=== PATIENT | female | born 1990 | race African-American/Black ===

== ENCOUNTER 2021-07-06 07:42 | Outpatient (REF) | payer OTHER, SELFPAY ==
[2021-07-06 11:15] LABS: MANUAL DIFF FLAG NO
[2021-07-06 11:21] LABS: Basophils Percent Auto 1.2 % (0-2); Eosinophils Absolute Auto 0.3 X10*3/uL (0.0-0.4); Eosinophils Percent Auto 7.4 % (0-4); Hematocrit 34.5 % (37.0-47.0); Hemoglobin 10.7 g/dl (12.0-16.0); Lymphocytes Absolute Auto 1.3 X10*3/uL (1.2-4.9); Lymphocytes Percent Auto 39.3 % (20-40); Mean Corpuscular Hemoglobin 25.1 pg (27.0-33.0); Mean Corpuscular Volume 80.8 fL (80.0-98.0); Mean Platelet Volume 10.7 fL (9.4-12.3); Monocytes Absolute Auto 0.3 X10*3/uL (0.1-1.2); Monocytes Percent Auto 9.2 % (2-11); Neutrophils Absolute Auto 1.4 x10*3/uL (2.0-8.3); Neutrophils Percent Auto 42.9 % (45-73); Platelet Count 393 X10*3/uL (160-400); Red Blood Count 4.27 X10*6/uL (4.20-5.50); Red Cell Distribution Width 15.4 % (11.0-16.0); White Blood Count 3.4 X10*3/uL (4.8-10.8)
[2021-07-06 11:51] LABS: Alanine Aminotransferase 59 U/L (0-31); Alkaline Phosphatase 89 U/L (39-117); Anion Gap 11 (12-20); Aspartate Amino Transferase 90 U/L (5-31); Bilirubin Total 0.4 mg/dL (0.0-1.0); Blood Urea Nitrogen 8 mg/dL (9-16); Calcium 9.4 mg/dL (8.4-10.2); Carbon Dioxide 25 mmol/L (22-29); Chloride 105 mmol/L (96-108); Cholesterol 228 mg/dL; Estimated Glomerular Filt Rate > 60; Glucose Fasting 83 mg/dL (60-99); HDL Cholesterol 66 mg/dL; LDL Cholesterol Calculated 152 mg/dl; Potassium 3.7 mmol/L (3.3-5.1); Sodium 137 mmol/L (135-145); Total Protein 7.3 g/dL (6.5-8.0); Triglycerides 52 mg/dL
[2021-07-06 11:59] LABS: Ferritin 11 ng/mL (10-122); TSH reflex Free T4 0.78 uIU/mL (0.32-4.0)
== END 2021-07-06 07:43 | disposition home or self-care (01) ==
LOC: HO.HMGCLDS 07:42
PROVIDERS: Visit Provider Internal Medicine
DX: E66.09 Other obesity due to excess calories (principal); N92.0 Excessive and frequent menstruation with regular cycle; R03.0 Elevated blood-pressure reading, without diagnosis of hypertension; Z76.89 Persons encountering health services in other specified circumstances
CPT/HCPCS: 36415; 80053; 80061; 82728; 84443; 85025

== ENCOUNTER 2021-07-26 14:39 | Outpatient (REF) | payer OTHER, SELFPAY ==
--- NOTE | ~2021-07-26 | US_ITS ---
EXAMINATION: US PELVIS CLINICAL INFORMATION: Excessive and frequent menstruation COMPARISON: None TECHNIQUE: Ultrasound of the pelvis is performed using both transabdominal and transvaginal transducers along with Doppler. Transvaginal imaging is performed due to inadequate visualization transabdominally. FINDINGS: The uterus is anteverted and measures 10.4 x 5.8 x 7.7 cm in dimension. Endometrial thickness is normal measuring 1 cm. There are multiple uterine lesions suggestive of fibroids. At least 7 focal lesions are identified. Largest fibroids are a exophytic or subserosal left posterior uterine fundal fibroid measuring 2.9 x 2.6 x 3 cm, left uterine body fibroid measuring 2.3 x 1.9 x 2.6 cm and 2.3 x 1.9 x 1.5 cm and left subserosal uterine body fibroid measuring 3.7 x 2.1 x 2 1 cm. The cervix is normal. The ovaries are normal. The right ovary measures 4.5 x 1.5 x 2.3 cm. The left ovary measures 3.7 x 2.4 x 3.3 cm. There is no fluid in the pelvis. US/US pelvic and transvaginal IMPRESSION: Multiple uterine fibroids. Normal thickness endometrium. Normal-appearing ovaries.
== END 2021-07-26 14:40 | disposition home or self-care (01) ==
LOC: HO.HMGCX 14:39
PROVIDERS: Visit Provider Internal Medicine
DX: N92.0 Excessive and frequent menstruation with regular cycle (principal)
CPT/HCPCS: 76830; 76856

== ENCOUNTER 2021-08-23 09:51 | Outpatient (REF) | payer OTHER, SELFPAY ==
--- NOTE | ~2021-08-23 | XR_ITS ---
EXAMINATION: XR KNEE, RIGHT CLINICAL INFORMATION: Right knee injury. COMPARISON: None TECHNIQUE: Four views of the right knee. FINDINGS: There is a large right knee suprapatellar joint effusion no visible acute fracture, dislocation or subluxation seen. No bony erosive changes. XR/XR knee RT 4V IMPRESSION: Large right knee suprapatellar joint effusion. No visible acute fracture or dislocation seen. There is mild periarticular spurring medial compartment.
== END 2021-08-23 09:52 | disposition home or self-care (01) ==
LOC: HO.HMGCX 09:51
PROVIDERS: PCP Internal Medicine; Visit Provider Internal Medicine
DX: S89.91XD Unspecified injury of right lower leg, subsequent encounter (principal)
CPT/HCPCS: 73564

== ENCOUNTER 2021-09-05 11:10 | Outpatient (REF) | payer OTHER, SELFPAY ==
--- NOTE | ~2021-09-05 | XR_ITS ---
EXAMINATION: XR KNEE, RIGHT CLINICAL INFORMATION: Pain. COMPARISON: Right knee radiographs 08/23/2021. TECHNIQUE: Four views of the right knee. FINDINGS: Moderate size joint effusion, decreased when compared to 08/23/2021. Again noted similar periarticular irregularity along the medial surface of the distal femur and tibial plateau. No displaced fractures. No subluxation. XR/XR knee RT 4V IMPRESSION: 1. Moderate size joint effusion, decreased. 2. Again noted cortical irregularities along the medial surface of the distal femur and tibial plateau, possibly degenerative spurring, although given patient's age small avulsion fractures cannot be excluded. If symptoms persist, correlation with a CT or MR is recommended.
== END 2021-09-05 11:11 | disposition home or self-care (01) ==
LOC: HO.HMGCX 11:10
PROVIDERS: PCP Internal Medicine; Visit Provider Physician Assistant
DX: M25.561 Pain in right knee (principal)
CPT/HCPCS: 73564

== ENCOUNTER 2021-10-05 09:56 | Outpatient (REF) | payer OTHER, SELFPAY ==
[2021-10-05 11:01] LABS: Hematocrit 38.7 % (37.0-47.0); Hemoglobin 12.3 g/dl (12.0-16.0)
[2021-10-05 11:44] LABS: Syphilis Screen Nonreactive (Nonreactive)
[2021-10-05 11:46] LABS: Alanine Aminotransferase 17 U/L (0-31); Albumin Level 4.3 g/dL (3.5-5.0); Alkaline Phosphatase 104 U/L (39-117); Aspartate Amino Transferase 17 U/L (5-31); Bilirubin Direct < 0.2 mg/dL (0.0-0.5); Bilirubin Total 0.2 mg/dL (0.0-1.0); Total Protein 7.6 g/dL (6.5-8.0)
[2021-10-05 11:56] LABS: Ferritin 20 ng/mL (10-122)
[2021-10-05 12:22] LABS: HBc Num1 0.07 S/CO (0.00-0.79); HIV AB/AG Nonreactive (Nonreactive); HIV Num 1 0.06 S/CO (0.00-0.99); Hepatitis B Core Antibody Nonreactive (Nonreactive); ~HepC Num1 0.13 S/CO (0.00-0.79); ~Hepatitis C Antibody Nonreactive (Nonreactive)
[2021-10-05 18:35] LABS: CT PCR NOT DETECTED (Not Detect.); NG PCR NOT DETECTED (Not Detect.)
[2021-10-06 10:49] LABS: BV Int Neg Control Negative (Negative); BV Int Pos Control Positive (Positive)
[2021-10-08 10:16] LABS: HPV mRNA E6/E7 rflx Not Detected (Not Detected)
== END 2021-10-05 09:57 | disposition home or self-care (01) ==
LOC: HO.LAB 09:56
PROVIDERS: PCP Internal Medicine; Referring Provider Internal Medicine; Visit Provider Advanced Practice Midwife
DX: Z01.419 Encounter for gynecological examination (general) (routine) without abnormal findings (principal); N92.0 Excessive and frequent menstruation with regular cycle; D50.9 Iron deficiency anemia, unspecified; R79.89 Other specified abnormal findings of blood chemistry; Z20.2 Contact with and (suspected) exposure to infections with a predominantly sexual mode of transmission
CPT/HCPCS: 36415; 80076; 82728; 85014; 85018; 86704; 86780; 86803; 87389; 87480; 87491; 87510; 87591; 87624; 87660; 88142

== ENCOUNTER → 2021-10-07 14:54 | Outpatient (BNVA) | payer OTHER, SELFPAY | PROVIDERS: PCP Internal Medicine; Visit Provider Advanced Practice Midwife | DX: Z30.42 Encounter for surveillance of injectable contraceptive (principal); N92.0 Excessive and frequent menstruation with regular cycle | CPT/HCPCS: 96372; 99211 ==

== ENCOUNTER 2021-10-09 04:53 | Emergency (ER) | payer OTHER, SELFPAY ==
[2021-10-09 05:33] VITALS: BP 131/69; PULSE 78; RESP 16; TEMP 36.9; O2SAT 100; BMI 29.9
[2021-10-09 06:30] LABS: MANUAL DIFF FLAG NO
[2021-10-09 06:31] LABS: Basophils Percent Auto 0.5 % (0-2); Eosinophils Absolute Auto 0.1 X10*3/uL (0.0-0.4); Eosinophils Percent Auto 2.2 % (0-4); Hematocrit 34.4 % (37.0-47.0); Hemoglobin 10.9 g/dl (12.0-16.0); Imm Gran Abs Auto 0.02 X10*3/uL (0.00-0.03); Imm Gran Pct Auto 0.3 % (0.0-0.4); Lymphocytes Absolute Auto 1.3 X10*3/uL (1.2-4.9); Lymphocytes Percent Auto 20.1 % (20-40); Mean Corpuscular HGB Conc 31.7 g/dl (31.0-35.0); Mean Corpuscular Hemoglobin 25.1 pg (27.0-33.0); Mean Corpuscular Volume 79.1 fL (80.0-98.0); Mean Platelet Volume 9.8 fL (9.4-12.3); Monocytes Absolute Auto 0.4 X10*3/uL (0.1-1.2); Monocytes Percent Auto 6.1 % (2-11); Neutrophils Absolute Auto 4.6 x10*3/uL (2.0-8.3); Neutrophils Percent Auto 70.8 % (45-73); Platelet Count 328 X10*3/uL (160-400); Red Blood Count 4.35 X10*6/uL (4.20-5.50); Red Cell Distribution Width 16.7 % (11.0-16.0); White Blood Count 6.4 X10*3/uL (4.8-10.8)
[2021-10-09 06:34] LABS: UPreg QC Valid YES; Urine Pregnancy NEGATIVE (NEGATIVE)
--- NOTE | 2021-10-09 06:43 | PC.NURSE ---
Pt. came in as she'd been experiencing pain and bleeding d/t fibroids. Her provider gave her a depo shot to combat this. It had no effect and has been making the pain and bleeding worse. Pt. resting in bed waiting to be seen by ED provider.
[2021-10-09 06:54] LABS: Anion Gap 12 (12-20); Blood Urea Nitrogen 10 mg/dL (9-16); Calcium 8.5 mg/dL (8.4-10.2); Carbon Dioxide 23 mmol/L (22-29); Chloride 110 mmol/L (96-108); Creatinine Clr Calc Pharmacy 100.4; Estimated Glomerular Filt Rate > 60; Glucose Random 88 mg/dL (60-115); Potassium 3.8 mmol/L (3.3-5.1); Sodium 141 mmol/L (135-145)
[2021-10-09 07:04] LABS: Appearance Urine Turbid; Color Urine RED; Glucose Urine UA Negative (Negative); Nitrite Urine Negative (Negative); Specific Gravity - Urine 1.025 (1.005-1.025); Urine Blood Large (3+) (Negative); Urine Ketones Negative (Negative); Urine Protein 30 (1+) mg/dL (Neg-Trace)
[2021-10-09 07:07] VITALS: BP 122/73; PULSE 71; RESP 20; TEMP 37; O2SAT 100
[2021-10-09 07:12] LABS: Leukocyte Esterase Urine Negative (Negative)
[2021-10-09 07:14] LABS: Bacteria Urine 1+ (None Seen); Hyaline Casts Urine 0-2 /LPF (0-2); RBC Urine >20 /HPF (0-2); WBC Urine 0-5 /HPF (0-5)
--- NOTE | 2021-10-09 07:18 | ED.GENADULT ---
HPI - General Adult General Chief complaint: General Medical Stated complaint: pelvic pain Time Seen by Provider: 10/09/21 05:04 Source: patient Mode of arrival: ambulatory Limitations: no limitations History of Present Illness HPI narrative: 31-year-old female came in for evaluation of lower abdominal pain after having Depo shot 2 days ago. Patient was confirmed to be negative for , just had a Depo shot 2 days ago started to have lower abdominal pain, patient currently is on her menstrual period, no SOB or CP. No nausea, no vomiting, no diarrhea, no fever, no chills. No abnormal vaginal discharge or bleed. No lower extremity swelling or tenderness. Related Data Previous Rx's Medication Instructions Recorded ferrous sulfate 324 mg (65 mg 324 mg PO BID 90 days #180 tabs 07/12/21 iron) tablet,delayed release medroxyprogesterone 150 mg/mL 150 mg IM [id number] #1 mL 10/05/21 intramuscular suspension (Depo-Provera) metronidazole 500 mg tablet 500 mg PO BID 7 days #14 tabs 10/07/21 Allergies Allergy/AdvReac Type Severity Reaction Status Date / Time No Known Allergies Allergy Verified 10/09/21 05:33 Review of Systems Review of Systems: All other systems are reviewed and are negative Constitutional: Reports as per HPI and Reports no additional constitutional complaints Eyes: Reports as per HPI and Reports no additional eye complaints Reports system reviewed and no additional complaints, except as documented Cardiovascular: Reports as per HPI and Reports no additional cardiovascular complaints Respiratory: Reports as per HPI and Reports no additional respiratory complaints Gastrointestinal: Reports as per HPI and Reports no additional gastrointestinal complaints Genitourinary: Reports no additional female genitourinary complaints Musculoskeletal: Reports no additional musculoskeletal complaints Skin/Breast: Reports system reviewed and no additional complaints, except as docu Psychiatric: Reports no additional psychiatric complaints Endocrine: Reports no additional endocrine complaints Hematologic/Lymphatic: Reports no additional hematologic/lymphatic complaints Allergic/Immunologic: Reports no additional allergic/immunologic complaints Reports system reviewed and no additional complaints, except as documented and Reports Abnormal speech present [facility] Past Medical History Medical History Depression Uterine fibroid Family History Family History Mother Hypertension Brain tumor Substance use disorder Maternal Grandmother Heart attack Father Substance use disorder Social History Social History Housing: House Patient Tobacco Use Status: Former Tobacco user Years Smoked: 5 years e-Cigarette/Vaping Use: Never Used Use of substances other than those prescribed or required for medical reasons: No Advance Directives: No Advance Directives Information Provided: No Patient : No service: Yes Current occupational status: employed 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 Blood pressure normal. Heart rate normal. Respiration rate normal. Temperature normal. Oxygen saturation normal. Appearance: Alert. Oriented X3. No acute distress. Head: Normal external exam. Normocephalic. Atraumatic. No House signs noted. No raccoon eyes noted Eyes: PERRLA. EOMI. Conjunctiva and sclera normal. Eyelids normal. ENT: TM's Normal. Pharynx normal. Uvula midline. Moist mucous membranes. No trismus noted. No drooling noted. No muffled voice noted. Neck: Normal inspection. Neck supple. FROM. No adenopathy. Thyroid Normal. No meningeal signs. No neck mass noted. CVS: Normal heart rate and rhythm. Heart sound normal. No murmurs noted. Pulses normal throughout. Respiratory: No respiratory distress. Painless inspiration. Breath sounds normal. No wheezes/rales/rhonchi noted. Chest nontender. No accessory muscle usage noted or decreased air movement noted. Abdomen: Soft and nontender. Bowel sounds normal in all 4 quadrants. No distention noted. No organomegaly noted. No visible injury noted. Back: No CVA tenderness. Full range of motion noted. Skin: Skin warm and dry. Normal skin color. Normal skin turgor. No rashes/lesions/lacerations noted. Extremities: No lower extremity edema. Extremities exhibit normal range of motion. Extremities nontender. Neuro: Oriented X 3. Cranial nerve exam: II-XII are grossly intact No motor deficit. No sensory deficit. Reflexes normal. Course Course Course Narrative: 31-year-old female status post Depo shot 2 days ago came in for evaluation of pelvic pain patient declined any CP or SOB, however D-dimer is elevated patient walked out before complete evaluation attempt to contact the patient on cell phone with no answers, Patient left before full evaluation. Medical Decision Making Lab Data Lab results reviewed: Yes I reviewed the patient's lab results. Result diagrams: 10/09/21 06:23 10/09/21 06:23 Labs: Lab Results 10/09/21 10/09/21 10/09/21 Range/Units 06:23 06:23 06:24 WBC 6.4 (4.8-10.8) X10*3/uL RBC 4.35 (4.20-5.50) X10*6/uL Hgb 10.9 L (12.0-16.0) g/dl Hct 34.4 L (37.0-47.0) % MCV 79.1 L (80.0-98.0) fL MCH 25.1 L (27.0-33.0) pg MCHC 31.7 (31.0-35.0) g/dl RDW 16.7 H (11.0-16.0) % Plt Count 328 (160-400) X10*3/uL MPV 9.8 (9.4-12.3) fL Immature Gran % (Auto) 0.3 (0.0-0.4) % Neut % (Auto) 70.8 (45-73) % Lymph % (Auto) 20.1 (20-40) % [place] % (Auto) 6.1 (2-11) % Eos % (Auto) 2.2 (0-4) % Baso % (Auto) 0.5 (0-2) % Lymph # (Auto) 1.3 (1.2-4.9) X10*3/uL [place] # (Auto) 0.4 (0.1-1.2) X10*3/uL Eos # (Auto) 0.1 (0.0-0.4) X10*3/uL Baso # (Auto) 0.0 (0.0-0.2) X10*3/uL Abs Immat Gran (auto) 0.02 (0.00-0.03) X10*3/uL Absolute Neuts (auto) 4.6 (2.0-8.3) x10*3/uL Absolute Nucleated RBC 0.000 (0.0-0.012) X10*3/uL Nucleated RBC % (auto) 0.0 (0.0-0.2) /100WBC D-Dimer High Sensitivty NG/ML Sodium 141 (135-145) mmol/L Potassium 3.8 (3.3-5.1) mmol/L Chloride 110 H (96-108) mmol/L Carbon Dioxide 23 (22-29) mmol/L Anion Gap 12 (12-20) BUN 10 (9-16) mg/dL Creatinine 0.85 (0.5-1.4) mg/dL Estim Creat Clear Calc 100.4 Estimated GFR > 60 Random Glucose 88 (60-115) mg/dL Calcium 8.5 D (8.4-10.2) mg/dL Total Bilirubin < 0.2 (0.0-1.0) mg/dL Direct Bilirubin < 0.2 (0.0-0.5) mg/dL AST 14 (5-31) U/L ALT 15 (0-31) U/L Alkaline Phosphatase 93 (39-117) U/L Total Protein 6.8 (6.5-8.0) g/dL Albumin 3.9 (3.5-5.0) g/dL Lipase 14 (8-78) U/L Urine Color RED Urine Appearance Turbid Urine pH 6.0 (5.0-8.0) Ur Specific [place] 1.025 (1.005-1.025) Urine Protein 30 (1+) H (Neg-Trace) mg/dL Urine Glucose (UA) Negative (Negative) mg/dL Urine Ketones Negative (Negative) mg/dL Urine Blood Large (3+) H (Negative) Urine Nitrite Negative (Negative) Ur Leukocyte Esterase Negative (Negative) Urine RBC >20 H (0-2) /HPF Urine WBC 0-5 (0-5) /HPF Ur Squamous Epith Cells 3-5 (0-2) /HPF Urine Bacteria 1+ (None Seen) Hyaline Casts 0-2 (0-2) /LPF Urine Test (NEGATIVE) 10/09/21 10/09/21 Range/Units 06:24 08:12 WBC (4.8-10.8) X10*3/uL RBC (4.20-5.50) X10*6/uL Hgb (12.0-16.0) g/dl Hct (37.0-47.0) % MCV (80.0-98.0) fL MCH (27.0-33.0) pg MCHC (31.0-35.0) g/dl RDW (11.0-16.0) % Plt Count (160-400) X10*3/uL MPV (9.4-12.3) fL Immature Gran % (Auto) (0.0-0.4) % Neut % (Auto) (45-73) % Lymph % (Auto) (20-40) % [place] % (Auto) (2-11) % Eos % (Auto) (0-4) % Baso % (Auto) (0-2) % Lymph # (Auto) (1.2-4.9) X10*3/uL [place] # (Auto) (0.1-1.2) X10*3/uL Eos # (Auto) (0.0-0.4) X10*3/uL Baso # (Auto) (0.0-0.2) X10*3/uL Abs Immat Gran (auto) (0.00-0.03) X10*3/uL Absolute Neuts (auto) (2.0-8.3) x10*3/uL Absolute Nucleated RBC (0.0-0.012) X10*3/uL Nucleated RBC % (auto) (0.0-0.2) /100WBC D-Dimer High Sensitivty 422 NG/ML Sodium (135-145) mmol/L Potassium (3.3-5.1) mmol/L Chloride (96-108) mmol/L Carbon Dioxide (22-29) mmol/L Anion Gap (12-20) BUN (9-16) mg/dL Creatinine (0.5-1.4) mg/dL Estim Creat Clear Calc Estimated GFR Random Glucose (60-115) mg/dL Calcium (8.4-10.2) mg/dL Total Bilirubin (0.0-1.0) mg/dL Direct Bilirubin (0.0-0.5) mg/dL AST (5-31) U/L ALT (0-31) U/L Alkaline Phosphatase (39-117) U/L Total Protein (6.5-8.0) g/dL Albumin (3.5-5.0) g/dL Lipase (8-78) U/L Urine Color Urine Appearance Urine pH (5.0-8.0) Ur Specific [place] (1.005-1.025) Urine Protein (Neg-Trace) mg/dL Urine Glucose (UA) (Negative) mg/dL Urine Ketones (Negative) mg/dL Urine Blood (Negative) Urine Nitrite (Negative) Ur Leukocyte Esterase (Negative) Urine RBC (0-2) /HPF Urine WBC (0-5) /HPF Ur Squamous Epith Cells (0-2) /HPF Urine Bacteria (None Seen) Hyaline Casts (0-2) /LPF Urine Test NEGATIVE (NEGATIVE) Discharge Plan Discharge Clinical Impression: Pelvic pain Patient Disposition: Elopement Prescriptions: No Action metronidazole 500 mg tablet 500 mg PO BID 7 Days Qty: 14 0RF Rx Instructions: Take with food, Avoid alcohol and vinegar products ferrous sulfate 324 mg (65 mg iron) tablet,delayed release (DR/EC) 324 mg PO BID 90 Days Qty: 180 0RF medroxyprogesterone [Depo-Provera] 150 mg/mL suspension 150 mg IM [id number] Qty: 1 3RF Interventions: ED Discharge Assessment Last Done: 10/09/21 10:10 Discharge Date/Time: 10/09/21 10:10
--- NOTE | 2021-10-09 07:21 | PC.NURSE ---
Patient reports experiencing bilateral lower abdominal pain 8. Patient pads ~ 1 ml mini bleeding. Patient Lungs sounds were clear, vitals are normal.
[2021-10-09 07:37] LABS: Alanine Aminotransferase 15 U/L (0-31); Albumin Level 3.9 g/dL (3.5-5.0); Alkaline Phosphatase 93 U/L (39-117); Aspartate Amino Transferase 14 U/L (5-31); Bilirubin Direct < 0.2 mg/dL (0.0-0.5); Bilirubin Total < 0.2 mg/dL (0.0-1.0); Lipase 14 U/L (8-78); Total Protein 6.8 g/dL (6.5-8.0)
[2021-10-09 08:24] LABS: D Dimer High Sensitivity 422 NG/ML
== END 2021-10-09 10:10 | disposition left against medical advice (07) ==
PROVIDERS: Emergency Medicine; Emergency Provider Emergency Medicine; PCP Internal Medicine
DX: R10.2 Pelvic and perineal pain (principal); R10.9 Unspecified abdominal pain; Z79.899 Other long term (current) drug therapy; Z87.891 Personal history of nicotine dependence
CPT/HCPCS: 36415; 80048; 80076; 81001; 81003; 81025; 83690; 85025; 85379; 99284

== ENCOUNTER 2021-10-11 07:57 | Outpatient (REF) | payer OTHER, SELFPAY ==
--- NOTE | ~2021-10-11 | XR_ITS ---
EXAMINATION: XR BILATERAL KNEE AP STANDING. LATERAL AND SUNRISE VIEWS OF THE RIGHT KNEE. CLINICAL INFORMATION: Pain in unspecified knee COMPARISON: 09/05/2021 TECHNIQUE: AP bilateral standing view of both knees, lateral view of the right knee, and sunrise view of the right knee were obtained. FINDINGS: Right knee: No fracture or dislocation. Mild medial compartment joint space narrowing. Mild medial osteophytosis. Small joint effusion appears improved from the prior. Mild lateral patellar tilt Left knee: Mild medial compartment joint space narrowing. No fracture or dislocation. XR/XR knee standing BI IMPRESSION: Mild medial and patellofemoral compartment degenerative changes. Decreasing right suprapatellar joint effusion.
--- NOTE | ~2021-10-11 | XR_ITS ---
EXAMINATION: XR BILATERAL KNEE AP STANDING. LATERAL AND SUNRISE VIEWS OF THE RIGHT KNEE. CLINICAL INFORMATION: Pain in unspecified knee COMPARISON: 09/05/2021 TECHNIQUE: AP bilateral standing view of both knees, lateral view of the right knee, and sunrise view of the right knee were obtained. FINDINGS: Right knee: No fracture or dislocation. Mild medial compartment joint space narrowing. Mild medial osteophytosis. Small joint effusion appears improved from the prior. Mild lateral patellar tilt Left knee: Mild medial compartment joint space narrowing. No fracture or dislocation. XR/XR knee RT 2V IMPRESSION: Mild medial and patellofemoral compartment degenerative changes. Decreasing right suprapatellar joint effusion.
== END 2021-10-11 07:58 | disposition home or self-care (01) ==
LOC: HO.HOSX 07:57
PROVIDERS: Visit Provider Physician Assistant
DX: S80.01XA Contusion of right knee, initial encounter (principal)
CPT/HCPCS: 73560; 73565; 99202

== ENCOUNTER → 2021-11-08 13:51 | Outpatient (BNVA) | payer OTHER, SELFPAY | PROVIDERS: PCP Internal Medicine; Visit Provider Physician Assistant | DX: S80.01XD Contusion of right knee, subsequent encounter (principal) | CPT/HCPCS: 99212 ==

== ENCOUNTER → 2021-12-20 15:21 | Outpatient (BNVA) | payer OTHER, SELFPAY | PROVIDERS: PCP Internal Medicine; Visit Provider Physician Assistant | DX: S80.01XD Contusion of right knee, subsequent encounter (principal) | CPT/HCPCS: 99212 ==

== ENCOUNTER 2021-12-26 07:55 | Outpatient (REF) | payer OTHER, SELFPAY ==
[2021-12-26 12:41] LABS: Blood Urea Nitrogen 10 mg/dL (9-16); Estimated Glomerular Filt Rate > 60
== END 2021-12-26 07:56 | disposition home or self-care (01) ==
LOC: HO.WFDLDS 07:55
PROVIDERS: Visit Provider Radiology Vascular & Interventional Radiology
DX: D25.9 Leiomyoma of uterus, unspecified (principal); Z98.890 Other specified postprocedural states
CPT/HCPCS: 36415; 82565; 84520

== ENCOUNTER 2022-01-04 13:36 | Outpatient (REF) | payer OTHER, SELFPAY ==
--- NOTE | ~2022-01-04 | MR_ITS ---
EXAMINATION: MR KNEE WITHOUT CONTRAST, RIGHT CLINICAL INFORMATION: Right knee pain COMPARISON: Radiographs 10/11/2021 TECHNIQUE: MRI of the knee without contrast was performed using routine sequences on a high-field scanner. FINDINGS: MENISCI: Medial Meniscus: Intact Lateral Meniscus: Intact LIGAMENTS: Cruciate: Intact Collateral: Intact EXTENSOR MECHANISM: Intact ARTICULAR CARTILAGE/BONE: Patellofemoral Compartment: Mild cartilage thinning and surface irregularity of the medial patellar facet and along the median ridge. Medial Compartment: Mild cartilage thinning and surface irregularity of the weightbearing femoral condyle and the peripheral aspect of the tibia medially. Lateral Compartment: Focal partial-thickness cartilage loss of the tibia posteriorly. JOINT FLUID AND BURSAE: Moderate joint effusion with mild synovitis. There is a small loose body in the posterior joint recess. MR/MR knee RT wo con IMPRESSION: 1. No meniscal tear. 2. Mild tricompartmental osteoarthritis with a moderate joint effusion and mild synovitis. There is a small loose body in the posterior joint recess.
== END 2022-01-04 13:37 | disposition home or self-care (01) ==
LOC: HO.MRI 13:36
PROVIDERS: Visit Provider Physician Assistant
DX: S80.01XA Contusion of right knee, initial encounter (principal)
CPT/HCPCS: 73721

== ENCOUNTER 2022-01-13 07:00 | Outpatient (RCR) | payer OTHER, SELFPAY ==
--- NOTE | 2021-12-21 13:35 | MHC.PT.OD ---
[facility] [place] Office [place] [facility] [place] [facility] [address] [place] [address] [phone] F: [phone] F: [phone] F: [phone] F: [phone] Physical Therapy Daily Note Diagnosis: [id number] Contusion of right knee, initial encounter. Contusion of right patella signed by Ruba Greene PA-C date of referral 11/09/21 Date of Surgery: Date of Evaluation: 12/09/21 Date of Treatment: 12/20/21 Treatments to Date: 4 Cancellations to Date: No Shows to Date: Authorized Visits: 15 Insurance End Date: Precautions/ Contraindications: Subjective: Pt expressing ongoing medial knee pain. She had to complete sit-ups for PT test this past Sunday questions if this caused flare of sx. Had significant pain walking the mall. Pain Score and Location: 07/22 Objective Flowsheet: Tests & Measures Exercises Review of SLR into flexion x 2 sets 10R , SL hip abduction x 2 sets 10R, prone hip extension x 2 sets 10R, AAROM heel slide AROM today 124 degrees , standing TKE with GTB x 2 sets 10R, standing heel touches attempted post taping but increased sx so this was stopped at 15R. Reviewed the impact of avoiding knee hyperext in standing, completed weight-shifting for hip extension bilaterally. Education re: impact of knee hyperext on symptoms. Iced knee in passive knee extension stretch with application of SELECT ESTIM end of session- post passive kne ext stretch ROM improved to -3 degrees. Education re: CFM for patellar tendon, education re: benefit in stretching quadriceps, self mobilization of quadriceps to ease mm soreness. Reviewed taping application V for offloading patellar tendon, vs alternate V strip last session. Modalities SELECT ESTIM UNIT applied R knee cross patterned tibiofemoral joint intensity 2.5mA> 3.0 mA x 10 minutes with passive knee extension ice as noted above. Assessment: 12/20/21: Pt has attended 4 sessions of PT to date since start of care on 12/09/21. Pt exhibits ongoing sx medial aspect of her knee and at site of patellar tendon today. Pt has been expressing buckling of her knee when walking on flat terrain multiple times daily. She expresses worsening sx after completing PT test when performing sit-up crunches this past Sunday. She has been advised to refrain from running but is scheduled for tentative PT test in December. Therapist has advised patient to refrain from running at this time and has been encouraged to walk within her tolerance and resume icing. AROM -8 to 124 degrees, AAROM -3 post icing. She has been using a compressive sleeve in addition to taping her knee. She has been wearing the patellar support brace given to her from orthopedics during the work day. She has been compliant with her HEP program and we have discussed modifications for avoidance of specific gym tasks such as open chain knee extension. We discussed the impact of footwear and potential benefit in trialing an arch support/ alternative supportive sneaker vs flat shoes. Pt has been encouraged to continue pain-free therex program as tolerated and use ice to aide in edema management. Pt scheduled [place] [facility] [place] [place] follow up later today at 3:00pm. 12/12/21: Pt challenged with SLR into flexion, verbalized positive response to self taping at time of last session. Pt issued written HEP sheets to include: SLR into flexion, SL hip abd, add, and prone hip extension, bridge, wall squats. Educated to ensure ROM is painfree for the R knee. Pt is a 31 y/o female, referred to PT for treatment of R knee contusion following history of hitting knee on the side of her bed in July. Pt continues to express limited tolerance for CKC activity, presents with poor quad function resulting in decreased strength and impaired functional mobility tolerance for stairs/prolonged ambulation. Pt currently working light duty ([employer]) Pt would benefit from attending skilled PT services at a frequency of 2x/week x 4-6 weeks to address impairments, implement HEP, and restore functional mobility to resume PLOF. Pt currently wearing patellar glide brace/sleeve at times. Pt exhibits decreased quadriceps activation/recruitment, impaired tolerance for ability to run, jump, bend her knee without pain, and complete fitness test as required for style PT testing. Pt was initiated in HEP program including: isometric quad set, SLR into flexion, aarom heel slides in sitting, and heel prop knee extension with ice/towel roll. PT Plan: 2x/week x 4-6 weeks Follow up with orthopedic later today 3:00pm. Short Term Goals: 1. AROM R knee extension to 0 degrees. (IR: -5 degrees). 2. AAROM R knee flexion to 130 degrees. (IR: 1128 degrees) 3. Strength of R knee to 5/5. (IR: poor quad activation and painful). 4. Negotiate stairs reciprocally with good dynamic balance. 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 Demonstrate good squat technique with good tolerance. 2. Run 1.5 miles within 16 minute duration. 3. Initiate a walking program with good dynamic balance. 4. Resume exercise MOD I with good joint protection. Electronically signed by: Heidy Olivarez, PT, DPT
== END 2022-04-06 07:48 | disposition home or self-care (01) ==
LOC: HO.PTWFD 07:00
PROVIDERS: PCP Internal Medicine; Visit Provider Physician Assistant
DX: S80.01XA Contusion of right knee, initial encounter (principal)
CPT/HCPCS: 97014; 97110; 97140; 97161; 97535

== ENCOUNTER → 2022-01-17 13:25 | Outpatient (BNVA) | payer OTHER, SELFPAY | PROVIDERS: PCP Internal Medicine; Visit Provider Physician Assistant | DX: S80.01XA Contusion of right knee, initial encounter (principal); W22.03XA Walked into furniture, initial encounter; Y93.9 Activity, unspecified; Y92.003 Bedroom of unspecified non-institutional (private) residence as the place of occurrence of the external cause; Y99.8 Other external cause status | CPT/HCPCS: 20610; 99212; J1040 ==

== ENCOUNTER 2022-05-10 06:33 | Emergency (ER) | payer OTHER, SELFPAY ==
[2022-05-10 06:53] VITALS: BP 134/82; PULSE 77; RESP 16; TEMP 36.3; O2SAT 100; BMI 30.4
[2022-05-10 07:27] VITALS: BP 128/83; PULSE 75; RESP 18; TEMP 36.9; O2SAT 100
--- NOTE | 2022-05-10 07:39 | ED.GENADULT ---
HPI - General Adult General Chief complaint: Back Pain/Injury Stated complaint: Back pain Time Seen by Provider: 05/10/22 07:37 Source: patient Mode of arrival: ambulatory Limitations: no limitations History of Present Illness HPI narrative: 6 days myalgias to back and legs. Patient had embolization to her fibroids, she started her period 6 days ago. In addition she has had chest pain. Never had chest pain before with symptoms feels short of breath. Substernal chest pain intermittent, nothing seems to start it, it goes away on its own. The pain happens in the middle of the night. She describes the pain as pressure. Back and legs are achey. Patient decided to come in because of the duration of discomfort. Onset (ago): day(s) Location: chest, back and lower extremity Radiation: non-radiation Severity: mild Quality: aching Pain Consistency: intermittent Related Data Previous Rx's Medication Instructions Recorded ferrous sulfate 324 mg (65 mg 324 mg PO BID 90 days #180 tabs 01/20/22 iron) tablet,delayed release naproxen 500 mg tablet (Naprosyn) 500 mg PO BID #20 tabs 05/10/22 Allergies Allergy/AdvReac Type Severity Reaction Status Date / Time No Known Allergies Allergy Verified 05/10/22 06:56 Review of Systems Review of Systems: Yes all other systems are reviewed and are negative Constitutional: Comments: myalgias Cardiovascular: Cardiovascular: Reports chest pain PMFSH Past Medical History Medical History Depression High cholesterol Uterine fibroid Family History Family History Mother Hypertension Brain tumor Substance use disorder Maternal Grandmother Heart attack Father Substance use disorder Social History Social History Housing: House Alcohol intake: current Alcohol intake frequency: a few times a week Alcohol type: wine Patient Tobacco Use Status: Former Tobacco user Years Smoked: 5 years e-Cigarette/Vaping Use: Never Used Advance Directives: No Advance Directives Information Provided: Yes service: Yes Current occupational status: employed 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 Cognitive needs: No Hearing needs: No Vision needs: No Physical Exam ED Vital Signs: Vital Signs - 24 hr 05/10/22 06:53 05/10/22 07:27 Temperature 97.4 F 98.4 F Pulse Rate 77 75 Respiratory Rate 16 18 Blood Pressure 134/82 128/83 Pulse Oximetry 100 100 Oxygen Delivery Method Room Air Room Air BMI result Body Mass Index 30.4 Const General: healthy appearing Nutritional Appearance: average body habitus Orientation/consciousness: oriented to person and patient oriented x3 Limitations: no limitations HENMT Head: Yes normal to inspection Ears: external ears normal General nose exam: Normal external nose present Mouth: Normal oral and palatal mucosa present and oropharynx normal Throat: Yes posterior oropharynx normal Eyes General: appearance normal, both eyes and all related structures Neck Neck: Yes normal visual inspection Chest Chest palpation & inspection: normal inspection of the chest Resp Auscultation: clear to auscultation bilaterally Cardio Jugular venous distension: no JVD Rate: regular rate Rhythm: regular rhythm Heart sounds: S1 normal heart sound present and S2 normal heart sound present GI Inspection: Yes normal to inspection Palpation (GI): Soft to palpation, nontender and No hepatosplenomegaly present Auscultation: normal bowel sounds General: Yes no CVA tenderness Back/Spine/Pelvis Back: no CVA tenderness Skin General skin exam: no rashes or lesions noted Neuro General: oriented to person and patient oriented x3 Cranial nerves: Yes CN's II-XII intact bilaterally Motor exam (neuro): 5/5 motor strength present throughout Extrem General: Yes normal to inspection Psych Appearance: grossly normal Course Reevaluation(s) Reevaluation #1: no evidence of cardiac or PE. Patient with myalgias no UTI will dc on NSAIDs Time: 09:49 Medications Administered Discontinued Medications Generic Name Dose Route Start Last Admin Trade Name Alo PRN Reason Stop Dose Admin Ketorolac Tromethamine 30 mg 05/10/22 07:48 05/10/22 08:21 Ketorolac Tromethamine 30 Mg/Ml Vial IVPUSH 05/10/22 07:49 30 mg ONCE ONE Administration Medical Decision Making Differential Diagnosis Differential Diagnoses: The differential diagnosis associated with the presentation includes (myalgias, PE, DVT, pleuritic chest pain) Lab Data MDM Lab Attestation statement: I reviewed the patient's lab results. (leukopenia is chronic) 05/10/22 07:57 05/10/22 07:57 Labs: Lab Results 05/10/22 05/10/22 05/10/22 Range/Units 07:57 07:57 07:57 WBC 2.2 L (4.8-10.8) X10*3/uL RBC 4.84 (4.20-5.50) X10*6/uL Hgb 12.4 (12.0-16.0) g/dl Hct 39.4 (37.0-47.0) % MCV 81.4 (80.0-98.0) fL MCH 25.6 L (27.0-33.0) pg MCHC 31.5 (31.0-35.0) g/dl RDW 14.3 (11.0-16.0) % Plt Count 326 (160-400) X10*3/uL MPV 9.8 (9.4-12.3) fL Immature Gran % (Auto) 0.0 (0.0-0.4) % Neut % (Auto) 0.8 L (45-73) % Lymph % (Auto) 50.2 H (20-40) % [place] % (Auto) 10.2 (2-11) % Eos % (Auto) 3.3 (0-4) % Baso % (Auto) 1.4 (0-2) % Lymph # (Auto) 1.1 L (1.2-4.9) X10*3/uL [place] # (Auto) 0.2 (0.1-1.2) X10*3/uL Eos # (Auto) 0.1 (0.0-0.4) X10*3/uL Baso # (Auto) 0.0 (0.0-0.2) X10*3/uL Abs Immat Gran (auto) 0.00 (0.00-0.03) X10*3/uL Absolute Neuts (auto) 0.8 L (2.0-8.3) x10*3/uL Absolute Nucleated RBC 0.000 (0.0-0.012) X10*3/uL Nucleated RBC % (auto) 0.0 (0.0-0.2) /100WBC Smear Tech's Comments VERIFIED ESR 7 (0-20) MM/HR D-Dimer High Sensitivty NG/ML Sodium 141 (135-145) mmol/L Potassium 4.0 (3.3-5.1) mmol/L Chloride 109 H (96-108) mmol/L Carbon Dioxide 27 (22-29) mmol/L Anion Gap 9 L (12-20) BUN 10 (9-16) mg/dL Creatinine 0.76 (0.5-1.4) mg/dL Estim Creat Clear Calc 112.0 Estimated GFR > 60 Random Glucose 85 (60-115) mg/dL Calcium 9.3 D (8.4-10.2) mg/dL Total Bilirubin 0.4 (0.0-1.0) mg/dL AST 19 (5-31) U/L ALT 26 (0-31) U/L Alkaline Phosphatase 104 (39-117) U/L Total Protein 7.3 (6.5-8.0) g/dL Albumin 4.2 (3.5-5.0) g/dL Beta HCG, Quant < 2 mIU/mL Urine Color Urine Appearance Urine pH (5.0-9.0) Ur Specific [place] (1.005-1.025) Urine Protein (Neg-Trace) mg/dL Urine Glucose (UA) (Negative) mg/dL Urine Ketones (Negative) mg/dL Urine Blood (Negative) Urine Nitrite (Negative) Ur Leukocyte Esterase (Negative) Urine RBC (0-2) /HPF Urine WBC (0-5) /HPF Ur Squamous Epith Cells (0-2) /HPF Urine Bacteria (None Seen) Hyaline Casts (0-2) /LPF 05/10/22 05/10/22 Range/Units 07:57 08:17 WBC (4.8-10.8) X10*3/uL RBC (4.20-5.50) X10*6/uL Hgb (12.0-16.0) g/dl Hct (37.0-47.0) % MCV (80.0-98.0) fL MCH (27.0-33.0) pg MCHC (31.0-35.0) g/dl RDW (11.0-16.0) % Plt Count (160-400) X10*3/uL MPV (9.4-12.3) fL Immature Gran % (Auto) (0.0-0.4) % Neut % (Auto) (45-73) % Lymph % (Auto) (20-40) % [place] % (Auto) (2-11) % Eos % (Auto) (0-4) % Baso % (Auto) (0-2) % Lymph # (Auto) (1.2-4.9) X10*3/uL [place] # (Auto) (0.1-1.2) X10*3/uL Eos # (Auto) (0.0-0.4) X10*3/uL Baso # (Auto) (0.0-0.2) X10*3/uL Abs Immat Gran (auto) (0.00-0.03) X10*3/uL Absolute Neuts (auto) (2.0-8.3) x10*3/uL Absolute Nucleated RBC (0.0-0.012) X10*3/uL Nucleated RBC % (auto) (0.0-0.2) /100WBC Smear Tech's Comments ESR (0-20) MM/HR D-Dimer High Sensitivty < 150 NG/ML Sodium (135-145) mmol/L Potassium (3.3-5.1) mmol/L Chloride (96-108) mmol/L Carbon Dioxide (22-29) mmol/L Anion Gap (12-20) BUN (9-16) mg/dL Creatinine (0.5-1.4) mg/dL Estim Creat Clear Calc Estimated GFR Random Glucose (60-115) mg/dL Calcium (8.4-10.2) mg/dL Total Bilirubin (0.0-1.0) mg/dL AST (5-31) U/L ALT (0-31) U/L Alkaline Phosphatase (39-117) U/L Total Protein (6.5-8.0) g/dL Albumin (3.5-5.0) g/dL Beta HCG, Quant mIU/mL Urine Color Yellow Urine Appearance Clear Urine pH 6.5 (5.0-9.0) Ur Specific [place] 1.020 (1.005-1.025) Urine Protein Negative (Neg-Trace) mg/dL Urine Glucose (UA) Negative (Negative) mg/dL Urine Ketones Negative (Negative) mg/dL Urine Blood Negative (Negative) Urine Nitrite Negative (Negative) Ur Leukocyte Esterase Negative (Negative) Urine RBC 0-2 (0-2) /HPF Urine WBC 0-5 (0-5) /HPF Ur Squamous Epith Cells 0-2 (0-2) /HPF Urine Bacteria None Seen (None Seen) Hyaline Casts 0-2 (0-2) /LPF Independent Interpretation I performed an independent interpretation of an: EKG (sinus 70, no st or twave changes) Tests considered The following testing was considered but not selected: Ct chest was considered but her ddimer came back negative Discharge Plan Discharge Clinical Impression: Myalgia, Chest pain Patient Disposition: Home, Self-Care Instructions: Musculoskeletal Pain (ED), Noncardiac Chest Pain (ED) Prescriptions: New naproxen [Naprosyn] 500 mg tablet 500 mg PO BID Qty: 20 0RF No Action ferrous sulfate 324 mg (65 mg iron) tablet,delayed release (DR/EC) 324 mg PO BID 90 Days Qty: 180 0RF Referrals: Ara Caro MD [Primary Care Provider] - 1 week
--- NOTE | 2022-05-10 07:41 | PC.NURSE ---
Patient resting comfortably complaint of abd and chest pain has been ongoing issue with heavy bleeding during menses. ABD soft non tender BS quad x 4. Patient denies hematuria of dysuria no recent trauma to abd. AOx 4 MD at bedside will CTM
--- NOTE | 2022-05-10 07:48 | ECG_ITS ---
Test Reason : chest pain Blood Pressure : / mmHG Vent. Rate : 070 BPM Atrial Rate : 070 BPM P-R Int : 196 ms QRS Dur : 078 ms QT Int : 398 ms P-R-T Axes : 006 027 016 degrees QTc Int : 429 ms Normal sinus rhythm Normal ECG No previous ECGs available Referred By: Esau Talamantes Electronically Signed By:YARY GEORGE
[2022-05-10 08:21] LABS: Basophils Percent Auto 1.4 % (0-2); Eosinophils Absolute Auto 0.1 X10*3/uL (0.0-0.4); Eosinophils Percent Auto 3.3 % (0-4); Hematocrit 39.4 % (37.0-47.0); Hemoglobin 12.4 g/dl (12.0-16.0); Lymphocytes Absolute Auto 1.1 X10*3/uL (1.2-4.9); Lymphocytes Percent Auto 50.2 % (20-40); MANUAL DIFF FLAG SCAN; Mean Corpuscular HGB Conc 31.5 g/dl (31.0-35.0); Mean Corpuscular Hemoglobin 25.6 pg (27.0-33.0); Mean Corpuscular Volume 81.4 fL (80.0-98.0); Mean Platelet Volume 9.8 fL (9.4-12.3); Monocytes Absolute Auto 0.2 X10*3/uL (0.1-1.2); Monocytes Percent Auto 10.2 % (2-11); Neutrophils Absolute Auto 0.8 x10*3/uL (2.0-8.3); Platelet Count 326 X10*3/uL (160-400); Red Blood Count 4.84 X10*6/uL (4.20-5.50); Red Cell Distribution Width 14.3 % (11.0-16.0); SCAN SMEAR FLAG 1
[2022-05-10] MEDS: Ketorolac Tromethamine 30 MG/ML VIAL IVPUSH (08:21)
[2022-05-10 08:22] LABS: White Blood Count 2.2 X10*3/uL (4.8-10.8)
[2022-05-10 08:23] LABS: Neutrophils Percent Auto 0.8 % (45-73)
[2022-05-10 08:25] LABS: D Dimer High Sensitivity < 150 NG/ML
[2022-05-10 08:26] LABS: Alanine Aminotransferase 26 U/L (0-31); Albumin Level 4.2 g/dL (3.5-5.0); Alkaline Phosphatase 104 U/L (39-117); Anion Gap 9 (12-20); Aspartate Amino Transferase 19 U/L (5-31); Bilirubin Total 0.4 mg/dL (0.0-1.0); Blood Urea Nitrogen 10 mg/dL (9-16); Calcium 9.3 mg/dL (8.4-10.2); Carbon Dioxide 27 mmol/L (22-29); Chloride 109 mmol/L (96-108); Estimated Glomerular Filt Rate > 60; Glucose Random 85 mg/dL (60-115); Sodium 141 mmol/L (135-145); Total Protein 7.3 g/dL (6.5-8.0)
[2022-05-10 08:27] LABS: Appearance Urine Clear; Color Urine Yellow; Glucose Urine UA Negative (Negative); Leukocyte Esterase Urine Negative (Negative); Nitrite Urine Negative (Negative); PH 6.5 (5.0-9.0); Urine Blood Negative (Negative); Urine Ketones Negative (Negative); Urine Protein Negative (Neg-Trace)
[2022-05-10 08:28] LABS: HCG Quantitative < 2 mIU/mL
[2022-05-10 08:30] LABS: Bacteria Urine None Seen (None Seen); Hyaline Casts Urine 0-2 /LPF (0-2); RBC Urine 0-2 /HPF (0-2); Squamous Epithelial Cell Urine 0-2 /HPF (0-2); WBC Urine 0-5 /HPF (0-5)
[2022-05-10 08:43] LABS: SLIDE REVIEW VERIFIED
[2022-05-10 09:07] LABS: Erythrocyte Sedimentation Rate 7 MM/HR (0-20)
[2022-05-10 10:11] VITALS: BP 131/84; PULSE 76; RESP 18; TEMP 36.8; O2SAT 100
== END 2022-05-10 10:13 | disposition home or self-care (01) ==
PROVIDERS: Emergency Provider Emergency Medicine; PCP Internal Medicine
DX: M79.10 Myalgia, unspecified site (principal); R07.89 Other chest pain; Z79.899 Other long term (current) drug therapy; Z87.891 Personal history of nicotine dependence
CPT/HCPCS: 36415; 80053; 81001; 84702; 85025; 85379; 85652; 93005; 96374; 99284; J1885

== ENCOUNTER 2022-05-15 13:07 | Outpatient (REF) | payer OTHER, SELFPAY | END 2022-05-15 13:08 | disposition home or self-care (01) | LOC: HO.LNP 13:07 | PROVIDERS: PCP Internal Medicine; Visit Provider Advanced Practice Midwife | DX: R10.2 Pelvic and perineal pain (principal); D25.9 Leiomyoma of uterus, unspecified; Z20.2 Contact with and (suspected) exposure to infections with a predominantly sexual mode of transmission | CPT/HCPCS: 81003; 99212 ==

== ENCOUNTER 2022-05-15 14:08 | Outpatient (REF) | payer OTHER, SELFPAY ==
[2022-05-16 01:05] LABS: CT PCR NOT DETECTED (Not Detect.); NG PCR NOT DETECTED (Not Detect.)
[2022-05-16 09:28] LABS: BV Int Neg Control Negative (Negative); BV Int Pos Control Positive (Positive)
== END 2022-05-15 14:09 | disposition home or self-care (01) ==
LOC: HO.LAB 14:08
PROVIDERS: Visit Provider Advanced Practice Midwife
DX: R10.2 Pelvic and perineal pain (principal); Z20.2 Contact with and (suspected) exposure to infections with a predominantly sexual mode of transmission
CPT/HCPCS: 0353U; 87480; 87510; 87660

== ENCOUNTER 2022-05-22 11:43 | Outpatient (REF) | payer OTHER, SELFPAY ==
--- NOTE | ~2022-05-22 | US_ITS ---
EXAMINATION: US PELVIS COMPLETE CLINICAL INFORMATION: Additional Notes/Special Instructions history of uterine embolization of fibroids-01/2022 : COMPARISON: Pelvic ultrasound 07/26/2021 TECHNIQUE: Transabdominal and transvaginal imaging was performed. FINDINGS: The uterus is enlarged measuring 12.7 x 4.7 x 7.6 cm. A regular homogeneous endometrium is identified measuring 0.6 cm. Nabothian cysts in the cervix. Again seen are multiple intramural and subserosal myomas some similar and some minimally decreased in size from prior, for example a 2.9 cm posterior body subserosal myoma previously measured 3 cm, a 2.7 cm left intramural myoma previously measured 3.7 cm, a 1.9 cm intramural posterior body myoma previously measured 1.9 cm and a 1.4 cm fundal subserosal myoma previously measured 1.9 cm. Both ovaries are of normal size and echogenicity. The right measures 3.3 x 2.5 x 2.1 cm for a volume of 10.1 mL. The left measures 2.2 x 0.9 x 2.0 cm for a volume of 2.1 mL. There is no pelvic free fluid. US/US pelvic and transvaginal IMPRESSION: Multiple uterine myomas, some similar in size and some slightly decreased from prior detailed above.
== END 2022-05-22 11:44 | disposition home or self-care (01) ==
LOC: HO.US 11:43
PROVIDERS: PCP Internal Medicine; Visit Provider Advanced Practice Midwife
DX: D25.9 Leiomyoma of uterus, unspecified (principal)
CPT/HCPCS: 76830; 76856

== ENCOUNTER → 2022-06-01 07:47 | Outpatient (BNVA) | payer OTHER, SELFPAY | PROVIDERS: PCP Internal Medicine; Visit Provider Advanced Practice Midwife ==

== ENCOUNTER 2022-10-12 14:10 | Outpatient (REF) | payer OTHER, SELFPAY ==
[2022-10-13 09:36] LABS: CT PCR NOT DETECTED (Not Detect.); NG PCR NOT DETECTED (Not Detect.)
[2022-10-13 12:09] LABS: BV Int Neg Control Negative (Negative); BV Int Pos Control Positive (Positive)
== END 2022-10-12 14:11 | disposition home or self-care (01) ==
LOC: HO.LNP 14:10
PROVIDERS: PCP Internal Medicine; Visit Provider Advanced Practice Midwife
DX: Z01.419 Encounter for gynecological examination (general) (routine) without abnormal findings (principal); Z20.2 Contact with and (suspected) exposure to infections with a predominantly sexual mode of transmission; R10.2 Pelvic and perineal pain
CPT/HCPCS: 0353U; 87480; 87510; 87660

== ENCOUNTER 2022-10-12 14:10 | Outpatient (AMB) | payer OTHER, SELFPAY ==
[2022-10-12 14:20] VITALS: BP 132/88; BMI 29.5
--- NOTE | 2022-10-12 14:20 | A.OFFVIS_ITS ---
Intake Vital Signs 10/12/22 14:20 Height 5 ft 5 in Weight 177 lb BMI 29.5 BP 132/88 Intake Visit Reasons: Annual/30 mins per domi Mcnally Intake Note: No concerns The patient agreed to use of a medical office technician during this encounter. Scribed for LAURYN Keiat by Lesly Rachel medical office technician, on 10/12/2022 at 2:28 pm EST. Bellmaker Required: No Information Interpreted: non-clinical & clinical Clay Puddler: Clay Puddler Present (Kandis ARZOLA) Accompanied by: Self / Same As Patient Allergies No Known Allergies Allergy (Verified 10/12/22 14:21) Is last menstrual period known: Yes Last menstrual period: 10/01/22 HPI HPI Comments History of Present Illness Details She is a premenopausal woman presenting for annual exam. 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 She admits to eating healthy and tries to stay active with exercise. Reports she has gotten better since embolization in 02/02. Currently sexually active and doesn't use any form of BC. Regular monthly periods. Denies vaginal itching and irritation. STD screening offered; she accepts. Denies family hx of breast, colon and ovarian cancer. Last pap smear 10/06/21. 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 Cognitive needs: No Hearing needs: No Vision needs: No Female Reproductive History Menstrual Age of Menarche: 11 Duration of menses: 6-7 days Date of last menstrual period: 10/01/22 Total pregnancies: 3 Full term: 2 Number of Living Children: 2 Ab induced: 1 Date of last pap smear: 10/06/21 Physical Exam Vital Signs: Last Vital Signs BP 132/88 10/12/22 14:20 BMI result Body Mass Index 29.5 Const General: cooperative, healthy appearing, no acute distress, well developed and alert Orientation/consciousness: patient oriented x3 HEENT Head: Yes normal to inspection Eyes General: appearance normal, both eyes and all related structures Neck Neck: Yes normal visual inspection Thyroid: Thyroid normal Chest Chest palpation & inspection: normal inspection of the chest Breast/axilla inspection: normal inspection of the breasts (no puckering, dimpling, peau de orange, retraction, discharge, masses) Breast/axilla palpation: normal palpation of the breasts Resp Effort & Inspection: normal respiratory effort GI Inspection: Yes normal to inspection Palpation (GI): Soft to palpation (to palpation) Rectal Exam - Female: deferred Other: bulky uterus General: Yes bladder normal to inspection External Female Exam: normal external appearance and normal appearance of the urethra Speculum Exam - Vagina: normal appearance of the vagina, normal palpation and normal vaginal discharge Speculum Exam - Cervix: normal appearance of the cervix and normal palpation Bimanual exam- vagina & uterus: normal palpation and normal palpation Bimanual Exam- Adnexa, other: normal adnexae and no masses Skin General skin exam: no rashes or lesions noted Neuro General: patient oriented x3 Cognition (Neuro): normal cognition Extrem General: Yes normal to inspection Psych Attitude: cooperative Thought process: Normal thought process present Assessment & Plan Assessment & Plan (1) Encounter for well woman exam: Code(s): Z01.419 - Encounter for gynecological examination (general) (routine) without abnormal findings Plan: Discussed: Current recommendations for pap smears per ASCCP guidelines. Breast awareness and periodic self breast exams. Maintaining a healthy lifestyle including a well balanced diet and routine exercise. Encouraged to use condoms for STD and prevention. If missed menses take at home test. Report any pelvic pressure, bloating, or pain. All of her questions and concerns were addressed to the best of my ability. RTO in one year for AG. (2) Potential exposure to STD: Code(s): Z20.2 - Contact with and (suspected) exposure to infections with a predominantly sexual mode of transmission Plan: BV testing and GC/CT panel done today. Await results and treat accordingly. Orders: Orders Bacterial Vaginosis Panel Today R10.2 - Pelvic and perineal pain, Z01.419 - Encounter for gynecological examination (general) (routine) without abnormal findings CT NG by PCR Today R10.2 - Pelvic and perineal pain, Z01.419 - Encounter for gynecological examination (general) (routine) without abnormal findings Coding Level of Care Code Est Pt Prev Care [id number]) Diagnoses Encounter for well woman exam Z01.419 Potential exposure to STD Z20.2
== END 2022-10-12 14:39 | disposition home or self-care (01) ==
PROVIDERS: PCP Internal Medicine; Visit Provider Advanced Practice Midwife
DX: Z01.419 Encounter for gynecological examination (general) (routine) without abnormal findings (principal); Z20.2 Contact with and (suspected) exposure to infections with a predominantly sexual mode of transmission
CPT/HCPCS: 99395